=== PATIENT | male | born 1955 | race Caucasian/White ===

== ENCOUNTER 2019-09-04 07:07 | Emergency (ER) | payer BC, MEDICARE ==
[2019-09-04 07:34] VITALS: BP 153/79
--- NOTE | 2019-09-04 07:40 | UC ---
Respiratory Complaint HPI - HPI Summary HPI Summary: 63-year-old male presents with fever, cough, congestion as well as sinus pressure for about 7 or more days. Patient states exertion and bending over worsens symptoms. Patient states rest improvement of symptoms.States tea with honey helps with cough. No CP, Palp or RIVERA. Wants to make sure not going in to chest for pneumonia. - History of Current Complaint Chief Complaint: UCGeneralIllness Stated Complaint: FLU LIKE ILLNESS Time Seen by Provider: 09/04/19 07:21 Hx Obtained From: Patient Onset/Duration: Gradual Onset Pain Intensity: 0 Character: Cough: Productive - Allergies/Home Medications Allergies/Adverse Reactions: Allergies Allergy/AdvReac Type Severity Reaction Status Date / Time acetaminophen [From Vicodin] AdvReac Nausea And Verified 09/04/19 07:27 Vomiting codeine AdvReac See Comment Verified 09/04/19 07:27 hydrocodone [From Vicodin] AdvReac Nausea And Verified 09/04/19 07:27 Vomiting meperidine [From Demerol] AdvReac Vomiting Verified 09/04/19 07:27 Home Medications: Home Medications Cholecalciferol TAB* [Vitamin D TAB*] 1,000 unit PO DAILY 09/04/19 [History Confirmed 09/04/19] Clopidogrel TAB* [Plavix TAB*] 75 mg PO DAILY 09/04/19 [History Confirmed ] Metoprolol Tartrate TAB* [Lopressor TAB*] 50 mg PO DAILY 09/04/19 [History Confirmed 09/04/19] cefUROXime axetiL [Cefuroxime] 500 mg PO BID #20 tablet 09/04/19 [Rx] PMH/Surg Hx/FS Hx/Imm Hx Previously Healthy: Yes Endocrine History: Dyslipidemia Cardiovascular History: Cardiac Disease, Hypertension - Surgical History Surgical History: Yes Surgery Procedure, Year, and Place: heart sx x5. R carpal tunnel. L hand ganglion cyst removal - Social History Alcohol Use: None Substance Use Type: None Smoking Status (MU): Former Smoker When Did the Patient Quit Smoking/Using Tobacco: 1998 Review of Systems All Other Systems Reviewed And Are Negative: Yes Constitutional: Positive: Fever, Chills, Fatigue ENT: Positive: Ear Ache, Nasal Discharge Respiratory: Positive: Cough Musculoskeletal: Positive: Myalgia Is Patient Immunocompromised?: No Physical Exam Triage Information Reviewed: Yes Appearance: Well-Appearing, No Pain Distress, Well-Nourished Vital Signs: Initial Vital Signs Temp 97.3 F 09/04/19 07:28 Pulse 60 09/04/19 07:28 Resp 14 09/04/19 07:28 BP 153/79 09/04/19 07:28 Pulse Ox 99 09/04/19 07:28 Vital Signs Reviewed: Yes Eye Exam: Normal ENT Exam: Normal Dental Exam: Normal Neck exam: Normal Neck: Positive: 1 Respiratory Exam: Normal Cardiovascular Exam: Normal Abdominal Exam: Normal Musculoskeletal Exam: Normal Neurological Exam: Normal Psychological Exam: Normal Skin Exam: Normal Respiratory Course/Dx - Course Course Of Treatment: patient presents with history of cough that was in the sinuses with sinus congestion and now states his moving into his chest. Vital signs are stable. Sounds viral in nature. Advised conservative and supportive care. He will resume his Flonase. We discussed cough suppressants like benzonatate but he declined. Advised that if symptoms over the next 2-3 days with his history of heart disease do deteriorate or not improved that he can start antibiotics to try to avoid them if possible. He is aware and agreeable to plan as well as the side effects of medication. If symptoms worsen go to emergency room. Follow-up with PCP in 2-3 days. - Differential Dx/Diagnosis Differential Diagnosis/HQI/PQRI: Bronchitis, Influenza, Lower Resp Infection, Sinusitis, Other - bronchitis / pna Provider Diagnosis: URI (upper respiratory infection) Discharge ED - Sign-Out/Discharge Documenting (check all that apply): Patient Departure All imaging exams completed and their final reports reviewed: No Studies - Discharge Plan Condition: Good Disposition: HOME Prescriptions: cefUROXime axetiL [Cefuroxime] 500 mg PO BID #20 tablet Patient Education Materials: Upper Respiratory Infection (ED) Referrals: Tasha Choudhury MD [Primary Care Provider] - 3 Days Additional Instructions: As we discussed your symptoms appear to be viral. Continue with your current regimen and resume your flonase and if your symptoms worsen over the next 2-3 days then at that time start antibiotics. - Billing Disposition and Condition Condition: GOOD Disposition: Home
[2019-09-04 07:51] LABS: Influenza A Molecular Negative (Negative); Influenza B Molecular Negative (Negative)
== END 2019-09-04 08:18 | disposition home or self-care (01) ==
LOC: UCCORT 07:07
DX: J06.9 Acute upper respiratory infection, unspecified (principal); I10 Essential (primary) hypertension; M79.10 Myalgia, unspecified site; R53.83 Other fatigue; Z87.891 Personal history of nicotine dependence; Z88.6 Allergy status to analgesic agent; Z88.5 Allergy status to narcotic agent
CPT/HCPCS: 99202; G0463